=== PATIENT | female | born 1940 | race Two or more races ===

== ENCOUNTER 2017-02-13 05:56 | Day surgery (SDC) | payer MEDICARE, BC ==
[2017-02-13] MEDS ORDERED: HYDROCODONE/APAP 7.5/325MG TABLET PO ONE (05:57)
[2017-02-13] MEDS ORDERED: SEVOFLURANE 250 ML INH ONE (05:57)
[2017-02-13] MEDS ORDERED: FENTANYL PF 100MCG/2ML VIAL IV ONE (05:57)
[2017-02-13] MEDS ORDERED: LIDOCAINE 2% MDV (20MG/ML) 20ML VIAL IV ONE (05:57)
[2017-02-13] MEDS ORDERED: KETOROLAC 30 MG/ML VIAL IVP ONE (05:57)
[2017-02-13] MEDS ORDERED: PROPOFOL 10 MG/ML VIAL IV ONE (05:57)
[2017-02-13] MEDS ORDERED: ACETAMINOPHEN 1,000 MG/100 ML BTL IV ONE (06:00)
--- NOTE | 2017-02-13 12:55 | Operative Note ---
DATE OF SURGERY: 02/13/2017 REFERRING PROVIDER: Heriberto Weaver DO PREOPERATIVE DIAGNOSIS: Carpal tunnel syndrome of the left wrist. POSTOPERATIVE DIAGNOSIS: Carpal tunnel syndrome of the left wrist. OPERATIVE PROCEDURE: Decompression of left median nerve of the wrist using 3.5 loop magnification. DESCRIPTION: This 76-year-old female was taken to the operating room and placed in the supine position on the operating room table where general anesthetic was administered. The left upper extremity was elevated and it was prepped with Hibiclens and draped in the usual sterile fashion. It was exsanguinated and the tourniquet inflated to 250 mmHg. A palmar incision was utilized following the hypothenar crease from the level of the base of the webspace of the thumb to the flexor crease of the wrist. Dissection was carried down through the skin and subcutaneous tissue. Palmar fascia divided in line with the skin incision. Flexor retinaculum was then identified. A small hole puncture in it, and then it was split to its proximal margin, and then with the contents of the carpal tunnel under direct vision, the transverse carpal ligament was transected along its ulnar border and the radial flap was raised to expose the entire median nerve under the transverse carpal ligament. The recurrent motor branch of the median nerve was identified and found to be intact. The nerve itself demonstrated marked hyperemia. There was also some atrophy of her nerve and mild hourglass deformity was also identified. The wound was irrigated with lactated Ringer's solution and hemostasis obtained with the electrocautery after deflation of the tourniquet, and the would was closed with interrupted 6-O nylon suture. Sterile dressings were applied with plaster splint immobilization with the wrist in slight dorsiflexion, and the thumb in an adducted position. CC: Heriberto Weaver DO [facility]ENTER[facility]ry
== END 2017-02-13 08:45 | disposition home or self-care (01) ==
LOC: SUR 05:56
PROVIDERS: ATTEND Orthopaedic Surgery
DX: G56.02 Carpal tunnel syndrome, left upper limb (principal); E03.9 Hypothyroidism, unspecified; E78.00 Pure hypercholesterolemia, unspecified
CPT/HCPCS: 64721; 01810; J1885; J3010